=== PATIENT | male | born 1985 | race Caucasian/White ===

== ENCOUNTER 2025-04-30 14:41 | Outpatient (CLI) | payer OTHER, SELFPAY | END 2025-04-30 14:42 | disposition home or self-care (01) | LOC: NFLDREF 14:43 | PROVIDERS: PCP Internal Medicine; Visit Provider Internal Medicine | DX: I10 Essential (primary) hypertension (principal); R51.9 Headache, unspecified | CPT/HCPCS: 80048; 87086 ==

== ENCOUNTER 2025-06-03 08:15 | Outpatient (CLI) | payer OTHER, SELFPAY | END 2025-06-03 08:16 | disposition home or self-care (01) | LOC: NFLDREF 06-08 04:13 | PROVIDERS: PCP Internal Medicine; Referring Provider Internal Medicine; Visit Provider Internal Medicine | DX: I10 Essential (primary) hypertension (principal) | CPT/HCPCS: 80061 ==